=== PATIENT | male | born 1990 | race Hispanic/Latino ===

== ENCOUNTER 2021-11-08 01:59 | Emergency (ER) | payer OTHER ==
[~2021-11-08] VITALS: Ht 180.3 cm; Wt 95.7 kg
[2021-11-08] MEDS ORDERED: KETOROLAC 60 MG VIAL (30MG/ML) IM ONE (03:00)
[2021-11-08] MEDS ORDERED: HYDROCODONE/ACETAMINOPHEN 10/325 MG TAB PO ONE (03:00)
[2021-11-08] MEDS ORDERED: MORPHINE 4 MG SYG IM ONE (03:30)
[2021-11-08] MEDS ORDERED: AMOX/CLAV 875/125MG TAB PO ONE (03:30)
[2021-11-08] MEDS ORDERED: TRAM1TAB2 PO (03:31)
[2021-11-08] MEDS ORDERED: IBUP-2077 PO (03:31)
[2021-11-08 03:46] VITALS: BP 145/78
[2021-11-08] MEDS ORDERED: BENZOCAINE 20% 57 GM SPRAY TP SCH (04:00)
== END 2021-11-08 03:51 | disposition home or self-care (01) ==
LOC: EDH 01:59
DX: K08.89 Other specified disorders of teeth and supporting structures (principal); Z79.1 Long term (current) use of non-steroidal anti-inflammatories (NSAID)
CPT/HCPCS: 99284; 96372 ×2; J2270; J1885